=== PATIENT | male | born 1950 | race Caucasian/White ===

== ENCOUNTER 2022-03-29 07:07 | Day surgery (SDC) | payer MEDICARE, BC ==
[2022-03-24 15:55] LABS: BASOPHILS # (AUTO) 0.1 X10'3 (0-0.2); BASOPHILS % (AUTO) 1.3 % (0-1); EOSINOPHILS # (AUTO) 0.1 X10'3 (0-0.9); EOSINOPHILS % (AUTO) 1.9 % (0-6); LYMPHOCYTES # (AUTO) 2.7 X10'3 (1.1-4.8); LYMPHOCYTES % (AUTO) 34.7 % (21-51); MEAN CORPUSCULAR HEMOGLOBIN 31.4 PG (27.0-31.0); MEAN CORPUSCULAR HGB CONC 34.2 g/dL (33.0-36.5); MONOCYTES # (AUTO) 0.8 X10'3 (0-0.9); MONOCYTES % (AUTO) 10.9 % (2-12); NEUTROPHILS % (AUTO) 51.2 % (42-75); PRE OP HEMATOCRIT 45.9 % (42.0-52.0); PRE OP HEMOGLOBIN 15.7 g/dL (14.0-17.9); PRE OP PLATELET COUNT 256 X10'3 (140-440); RED BLOOD COUNT 4.99 X10'6 (4.70-6.10); RED CELL DISTRIBUTION WIDTH 13.7 % (11.5-14.5)
[2022-03-24 15:55] LABS: CLARITY,URINE CLEAR (Clear); COLOR,URINE YELLOW (Yellow); GLUCOSE, URINE >=1000 mg/dl (Neg); KETONES,URINE NEGATIVE (Neg); LEUKOCYTE ESTERASE ,URINE NEGATIVE (Neg); NITRITES, URINE NEGATIVE (Neg); OCCULT BLOOD,URINE NEGATIVE (Neg); PROTEIN,URINE NEGATIVE (Neg); UROBILINOGEN,URINE 0.2 E.U/dL (0.2-1.0)
[2022-03-24 15:57] LABS: UA COLLECTION TYPE VOIDED
[2022-03-24 16:01] LABS: BACTERIA,URINE NONE SEEN /HPF (Neg); MUCUS STRANDS NONE SEEN /LPF (Neg); RBC,URINE NONE SEEN /HPF (0-2); SQUAMOUS EPITHELIAL CELL,UR FEW /LPF (FEW); WBC,URINE NONE SEEN /HPF (0-4)
[2022-03-24 16:05] LABS: ALBUMIN 4.1 G/DL (3.4-5.0); ALBUMIN/GLOBULIN RATIO 1.3 (1.1-1.5); ALKALINE PHOSPHATASE 88 IU/L (46-116); BLOOD UREA NITROGEN 27 MG/DL (7-18); BUN/CREATININE RATIO 21.8 (5.4-32.0); CALCIUM 9.2 MG/DL (8.5-10.1); CHLORIDE 103 MMOL/L (99-107); CREATININE 1.24 MG/DL (0.60-1.10); PRE OP ALT 28 U/L (30-65); PRE OP ANION GAP 6 (8-16); PRE OP AST 25 U/L (10-37); PRE OP BILIRUB, TOTAL 0.3 MG/DL (0.0-1.0); PRE OP GLUCOSE 85 MG/DL (70-104); PRE OP POTASSIUM 4.1 MMOL/L (3.4-5.1); PRE OP SODIUM 139 MMOL/L (135-145); TOTAL CARBON DIOXIDE 29.9 MMOL/L (24-32); TOTAL PROTEIN 7.3 G/DL (6.4-8.2); eGFR 57 ML/MIN
[2022-03-29] VITALS (14 sets, daily range): BP systolic 102–123; BP diastolic 61–82
[~2022-03-29] VITALS: Ht 180.3 cm; Wt 79.2 kg
[~2022-03-29 07:07] MED LIST: AMIO100T PO; APIX5TAB3 PO; CARV25TA2 PO; EMPA10TA PO; FURO20TA4 PO; LEVO330T PO; PITA4TAB2 PO; SACU1TAB7 PO; SPIR25TA5 PO; ceFAZolin inj. 2,000 MG in dextrose 5%-water 100 ML IV ONE; famotidine 20mg tablet PO ONE; ringers solution, lacted 1,000 ML IV SCH
[2022-03-29] MEDS ORDERED: BUPIVAcaine 0.5% inj/PF 30 ML ONE (10:16)
[2022-03-29] MEDS ORDERED: sevoflurane 250ml liquid IH ONE (10:34)
[2022-03-29] MEDS ORDERED: midazolam 1 mg/ML 2ml injection ONE (10:42)
[2022-03-29] MEDS ORDERED: fentaNYL/PF 50MCG/1 ML 2ML syringe ONE (10:42)
[2022-03-29] MEDS ORDERED: rocuronium 10mg/ml inj IV ONE (11:06)
[2022-03-29] MEDS ORDERED: etomidate 2mg/ml inj. ONE (11:06)
--- NOTE | 2022-03-29 11:14 | NUR ---
PTS HR WAS 36, BY MONITOR AND PALPATION, BP STABLE, PT ASYMPTOMATIC, STATES IT HAS BEEN LIKE THIS FOR QUITE A WHILE, DR ANDERSEN AND DR MACHADO IN, UPDATED, BOTH DOCTORS WENT IN AND ASSESSED/DISCUSSED W/PT. [employer] REP HERE TO INTERROGATE PTS AICD/PM. PER REP PACEMAKER IS WORKING PROPERLY, PT IS HAVING BIGEMINY BEATS, DR MACHADO SPOKE W/[employer] REP AND IS OKAY TO PROCEED W/SURGERY AND DISCUSSED W/PT WHO IS IN AGREEMENT TO PROCEED W/SURGERY. Addendum: 03/29/22 at 1123 by Nena Bar RN Amended: Links added.
[2022-03-29] MEDS ORDERED: BUPIVAcaine 0.5% inj/PF 30 ml vial IJ ONE (11:16)
[2022-03-29] MEDS ORDERED: acetaminophen 1,000mg/100ml IV 100 ML IV PRN (11:40)
[2022-03-29] MEDS ORDERED: meperidine/PF 25mg/ml syringe IV PRN ×3 (11:40)
[2022-03-29] MEDS ORDERED: morphine 4 MG/ML inj SYRINge IV PRN (11:40)
[2022-03-29] MEDS ORDERED: ondansetron/PF 4mg/2ml inj IV PRN (11:40)
[2022-03-29] MEDS ORDERED: ringers solution, lacted 1,000 ML IV SCH (11:40)
[2022-03-29] MEDS ORDERED: ketorolac trometh. 30mg/ml inj. IV ONE (11:40)
[2022-03-29] MEDS ORDERED: morphine 2 MG/ML inj. syringe IV PRN (11:40)
[2022-03-29] MEDS ORDERED: dexamethasone sod phosphate 4mg/ml inj. ONE (11:52)
[2022-03-29] MEDS ORDERED: glycopyrrolate 0.2mg/ml inj ONE (11:52)
[2022-03-29] MEDS ORDERED: neostigmine methylsulfate 1 MG/ML 10ml vial ONE (11:52)
[2022-03-29] MEDS ORDERED: ondansetron/PF 4mg/2ml inj ONE (11:52)
--- NOTE | 2022-03-29 12:20 | NUR ---
Received from OR via BED, accompanied by Anesthesiologist and report given by Anesthesiologist. PATIENT WAKING UP, NO S/S OF PAIN, V/S WNL, SCD ON, 20G TO RUE, ABDOMEN LAP SITE CLEAN W/ NO S/S OF COMPLICATIONS. LUIS MEYER.
[2022-03-29] MEDS ORDERED: acetaminophen 1,000mg/100ml IV 100 ML IV ONE (13:00)
[2022-03-29] MEDS ORDERED: traMADol 50MG tablet PO ONE (13:00)
--- NOTE | 2022-03-29 16:20 | NUR ---
PATIENT A&OX4, DENIES PAIN, V/S WNL, SCD OFF, 20G TO RUE D/C, ABDOMEN LAP SITE CLEAN W/ NO S/S OF COMPLICATIONS. ARTLINE RUE D/C. PATIENT UNABLE TO PEE.F/C PLACED PER PROTICAL WITH NO COMPLICATIONS DUE TO PATIENT BEING UNABLE TO VOID AND OVER 350CC IN BLADDER SCAN. GOOD OUTPUT OF URINE FROM F/C WITH CLEAR YELLOW URINE. I HAVE DEMONSTRATED F/C CARE AND PATIENT HAS VERBALIZED UNDERSTANDING ON HOME CARE. EDUCATION PACKET GIVEN TO PATIENT WELL FOR F/C MANAGEMENT FOR HOME. PATIENT AGREES HE WILL CALL DR ANDERSEN OFFICE IN AM FOR F/C D/C APPT IN OFFICE.. I HAVE REVIEWED D/C INSTRUCTIONS WITH PATIENT and they have verbalized understanding patient d/c home with all belongings and family gave transport home.
== END 2022-03-29 16:20 | disposition home or self-care (01) ==
LOC: PAS 07:07
PROVIDERS: ATTEND Surgery
DX: K40.90 Unilateral inguinal hernia, without obstruction or gangrene, not specified as recurrent (principal); I11.0 Hypertensive heart disease with heart failure; I50.9 Heart failure, unspecified; E11.9 Type 2 diabetes mellitus without complications; Z98.890 Other specified postprocedural states; Z79.899 Other long term (current) drug therapy; Z95.0 Presence of cardiac pacemaker; Z79.82 Long term (current) use of aspirin; Z82.49 Family history of ischemic heart disease and other diseases of the circulatory system
CPT/HCPCS: 36415; 49650; 80053; 81001; 82948; 85025; C1758; C1781; J0131; J0690; J1100; J2175; J2250; J2405; J2710; J3010; J3490; J7030; J7060; J7120; S0020; Z7506; Z7508; Z7512; A4215; A4618